=== PATIENT | male | born 1960 | race Two or more races ===

== ENCOUNTER 2021-07-20 14:00 | Emergency (ER) | payer MEDICAID ==
[~2021-07-20] VITALS: Ht 172.7 cm; Wt 109.8 kg
--- NOTE | 2021-07-20 14:08 | NUR ---
BIBRA78 HOME, FOUND UNRESPONSIVE, SLUMPED IN A CHAIR S/P INGESTING WHAT HE THOUGHT WAS COCAINE. NARCAN 2MG IVP GIVEN GAG WRITER. PATIENT A/OX4, VERBALLY RESPONSIVE. PATIENT'S DIAPHORETIC. RESP SLOW, SPO2 88% ON ROOM AIR. HOB ELEVATED AT THIS TIME.
--- NOTE | 2021-07-20 14:10 | NUR ---
PATIENT'S O2 SAT ON ROOM AIR SHOWS 88-89%. PLACED ON 4LPM VIA NC, SPO2 INCREASED TO 97%. PATIENT'S SITTING WITH HOB AT 90 DEGREE, BREATHING EVEN IMPROVED. RESP 14 AT THIS TIME.
[2021-07-20] MEDS ORDERED: NALOXONE PREFILLED SYRINGE 2 MG/2 ML SYRINGE ONE (14:50)
--- NOTE | 2021-07-20 14:53 | NUR ---
GIRLFRIEND KYLAH CALLED REQUESTING AN UPDATE, PT REQUESTED WE DO NOT UPDATE HER ON HIS CONDITION.
--- NOTE | 2021-07-20 14:58 | NUR ---
PATIENT IS REFUSING TO GIVE ANY BLOOD WORK AND URINE AT THIS TIME, DR. RUCKER MADE AWARE.
[2021-07-20] MEDS ORDERED: NALOXONE HCL 0.4 MG/ML AMPUL IV ONE (15:00)
--- NOTE | 2021-07-20 16:08 | NUR ---
PATIENT SITTING UP, ON 2LPM VIA NC WITH SPO2 OF 96%. PATIENT ASLEEP BUT EASILY AROUSABLE. RESPIRATORY STATUS CLOSELY MONITORED.
--- NOTE | 2021-07-20 17:43 | NUR ---
PATIENT IS INSISTING TO GO HOME, BUT WHEN O2 REMOVED, SPO2 DECREASED TO 85% ON ROOM AIR, O2 REAPPLIED AT 2LPM VIA NC WITH SPO2 OF 95%.
[2021-07-20] MEDS ORDERED: NALO4SPR NS (17:49)
--- NOTE | 2021-07-20 18:10 | NUR ---
PATIENT PASSED AMBULATION STATUS, ABLE TO WALK WITH STEADY GAIT. SPO2 ON ROOM AIR IS AT 94%. BREATHING EVEN AND UNLABORED, NO DISTRESS NOTED. DR. RUCKER MADE AWARE. PATIENT IS READY FOR DISCHARGE AND WILL TAKE UBER HOME.
--- NOTE | 2021-07-20 18:34 | NUR ---
Patient ambulatory with steady gait. No distress noted. Patient discharged to home in stable condition. Written and verbal after care instructions given. Patient verbalizes understanding of instruction. IV removed. Catheter intact and site benign. Pressure and 4x4 applied to site. No bleeding noted.
[2021-07-20 18:35] VITALS: BP 102/54
== END 2021-07-20 18:35 | disposition home or self-care (01) ==
LOC: ER 14:03
DX: T40.2X1A Poisoning by other opioids, accidental (unintentional), initial encounter (principal); I44.4 Left anterior fascicular block; E66.01 Morbid (severe) obesity due to excess calories; Z68.36 Body mass index [BMI] 36.0-36.9, adult; Y92.89 Other specified places as the place of occurrence of the external cause
CPT/HCPCS: 71045; 93005; 96374; 99285; J2310

== ENCOUNTER 2022-04-30 19:19 | Inpatient (IN) | payer MEDICAID ==
[~2022-04-30] VITALS: Ht 170.2 cm; Wt 81.6 kg
[~2022-04-30 19:19] MED LIST: NALO4SPR NS
--- NOTE | 2022-04-30 20:30 | NUR ---
BIBSELF C/O R LEG ULCER PAIN X4 DAYS. PT HAS HAD ULCERS FOR PAST 4 YEARS. PATIENT ALERT AND ORIENTED X3. AMBULATORY WITH LEG WRAPPED. PATIENT IN BED 13 AWAITING MD VALLECILLO.
[2022-04-30] MEDS ORDERED: PIPERACILLIN /TAZOBACTAM 3.375 G in IV D5W 50 ML IV ONE (21:00)
[2022-04-30] MEDS ORDERED: VANCOMYCIN 1 GM in IV D5W 250 ML IV ONE (21:00)
[2022-04-30] MEDS ORDERED: IV NS 0.9% 1,000 ML BAG IV ONE ×2 (21:00→23:00)
[2022-04-30] MEDS ORDERED: MORPHINE SULFATE INJ 2 MG/ML DISP.SYRIN IV ONE (21:00)
[2022-04-30] MEDS ORDERED: ONDANSETRON HCL/PF 4 MG/2 ML VIAL IVP ONE (21:00)
[2022-04-30] MEDS ORDERED: KETOROLAC TROMETHAMINE INJ 30 MG/ML VIAL IV ONE (21:00)
--- NOTE | 2022-04-30 21:15 | NUR ---
US TECH AT BEDSIDE
[2022-04-30] MEDS ORDERED: KETOROLAC TROMETHAMINE 15 MG/ML VIAL ONE (21:21)
[2022-04-30] MEDS ORDERED: ONDANSETRON HCL/PF 4 MG/2 ML VIAL ONE (21:21)
[2022-04-30] MEDS ORDERED: PIPERACILLIN /TAZOBACTAM 3.375 G VIAL IV ONE (21:22)
[2022-04-30] MEDS ORDERED: VANCOMYCIN 1 GM VIAL ONE (21:22)
[2022-04-30] MEDS ORDERED: MORPHINE SULFATE INJ 4 MG/ML DISP.SYRIN ONE (21:22)
--- NOTE | 2022-04-30 21:24 | NUR ---
COVID SWAB DONE AND SENT TO LAB
--- NOTE | 2022-04-30 21:25 | NUR ---
BLOOD AND CULTURES COLLECTED AND SENT TO LAB
[2022-04-30 21:48] LABS: BASOPHILS # (AUTO) 0.1 K/uL (0.0-0.2); BASOPHILS % (AUTO) 0.6 % (0.0-2.0); EOSINOPHILS % (AUTO) 1.6 % (0.0-6.0); HEMATOCRIT 40 % (39-51); HEMOGLOBIN 13.4 g/dL (13.5-17.5); LYMPHOCYTES # (AUTO) 2.1 K/uL (0.8-4.8); LYMPHOCYTES % (AUTO) 16.8 % (20.0-44.0); MEAN CORPUSCULAR HGB CONC 33 g/dl (31.0-36.0); MEAN CORPUSCULAR VOLUME 80 fL (80-96); MONOCYTES # (AUTO) 0.9 K/uL (0.1-1.30); MONOCYTES % (AUTO) 6.9 % (2.0-12.0); NEUTROPHILS # (AUTO) 9.3 K/uL (1.8-8.9); NEUTROPHILS % (AUTO) 74.1 % (43.0-81.0); PLATELET COUNT (AUTO) 309 K/uL (150-450); WHITE BLOOD COUNT (AUTO) 12.5 K/uL (4.3-11.0)
[2022-04-30 22:02] LABS: CALCIUM, SERUM 9.1 mg/dL (8.5-10.1); CREATININE 1.1 mg/dL (0.6-1.3); POTASSIUM 4.1 mmol/L (3.5-5.1)
[2022-04-30 22:07] LABS: ALANINE AMINOTRANSFERASE 46 U/L (12-78); ALBUMIN 2.9 g/dL (3.4-5.0); ALKALINE PHOSPHATASE 133 U/L (46-116); ASPARTATE AMINOTRANSFERASE 26 U/L (15-37); BILIRUBIN,DIRECT 0.1 mg/dL (0.0-0.2); BILIRUBIN,TOTAL 0.4 mg/dL (0.2-1.0); TOTAL PROTEIN, SERUM 8.7 g/dL (6.4-8.2)
[2022-04-30] MEDS ORDERED: Z GUARD REMEDY 4 OZ OINT TP PRN (23:30)
[2022-04-30] MEDS ORDERED: ACETAMINOPHEN 325 MG TABLET PO PRN (23:30)
[2022-04-30] MEDS ORDERED: DEXTROSE 50%-WATER 50 ML DISP.SYRIN IV PRN (23:30)
[2022-04-30] MEDS ORDERED: ONDANSETRON HCL/PF 4 MG/2 ML VIAL IVP PRN (23:30)
[2022-04-30] MEDS ORDERED: MAGNESIUM HYDROXIDE 30 ML UDC PO PRN (23:30)
[2022-04-30] MEDS ORDERED: MAG HYDROX/AL HYDROX/SIMETH 30 ML UDC PO PRN (23:30)
[2022-04-30] MEDS ORDERED: ZOLPIDEM TARTRATE 5 MG TABLET PO PRN (23:30)
--- NOTE | 2022-05-01 00:59 | NUR ---
report given to geoffrey schneidergarnisher nurse
--- NOTE | 2022-05-01 01:57 | NUR ---
pt transported to 3rd floor
--- NOTE | 2022-05-01 02:10 | NUR ---
MS RN INITIAL NOTE PT ARRIVED TO UNIT VIA WHEELCHAIR; PT ABLE TO WALK TO BED; NOTED TO HAVE MILD BLE WEAKNESS. PT A&O X4, CALM, COOPERATIVE, MAKES NEEDS KNOWN. PT COMPLAINS OF RLE PAIN AND INCREASED SWELLING, REDNESS AND WARMTH FOR 4 DAYS. PT CURRENTLY ON RA WITH O2SAT 98%; NO S/S OF RESP DISTRESS, NON-LABORED BREATHING, NO SOB, NON-LABORED AND EQUAL BREATHING; APPEARS COMFORTABLE. VSS, NO SIGNIFICANT FINDINGS. LAC SL INTACT AND PATENT WITH NO S/S OF INFILTRATION, FLUSHES EASILY WITH NO RESISTANCE. NS STARTED, RUNNING AT 100 ML/HR. BED IN LOWEST POSITION, CALL LIGHT WITHIN REACH, SIDE RAILS UP X2. WILL INITIATE PLAN OF CARE.
[2022-05-01 04:00] VITALS: BP 126/78
[2022-05-01] MEDS ORDERED: ZOSYN IVPB 3.375 G in IV D5W 50ml IV ONE (04:00)
[2022-05-01 04:05] LABS: BASOPHILS # (AUTO) 0.1 K/uL (0.0-0.2); HEMATOCRIT 36 % (39-51); HEMOGLOBIN 12.2 g/dL (13.5-17.5); LYMPHOCYTES # (AUTO) 1.9 K/uL (0.8-4.8); LYMPHOCYTES % (AUTO) 16.9 % (20.0-44.0); MEAN CORPUSCULAR HGB CONC 34 g/dl (31.0-36.0); MEAN CORPUSCULAR VOLUME 79 fL (80-96); MONOCYTES # (AUTO) 0.9 K/uL (0.1-1.30); MONOCYTES % (AUTO) 7.9 % (2.0-12.0); NEUTROPHILS # (AUTO) 7.9 K/uL (1.8-8.9); NEUTROPHILS % (AUTO) 72.2 % (43.0-81.0); PLATELET COUNT (AUTO) 278 K/uL (150-450); RED BLOOD CELL COUNT(AUTO) 4.51 MIL/uL (4.5-6.0)
[2022-05-01 04:19] LABS: CALCIUM, SERUM 8.6 mg/dL (8.5-10.1); CREATININE 1.1 mg/dL (0.6-1.3); MAGNESIUM 2.2 mg/dL (1.8-2.4); PHOSPHORUS 4.1 mg/dL (2.5-4.9); POTASSIUM 4.7 mmol/L (3.5-5.1)
[2022-05-01] MEDS: IV NS 0.9% 1,000 ML IV SCH ×3 (04:56→17:19)
[2022-05-01] MEDS ORDERED: PIPERACILLIN /TAZOBACTAM 3.375 G VIAL IV ONE (05:23)
--- NOTE | 2022-05-01 06:36 | NUR ---
MS RN CLOSING NOTE PT REMAINS IN BED, CURRENTLY ASLEEP BUT EASILY AROUSABLE. PT A&O X4, CALM, COOPERATIVE, ABLE TO MAKE NEEDS KNOWN. PT REMAINS ON RA WITH NO SIGNIFICANT CHANGES TO O2SAT; NO S/S OF RESP DISTRESS, NON-LABORED BREATHING, NO SOB, NON-LABORED AND EQUAL BREATHING; APPEARS COMFORTABLE. VSS THROUGHOUT THE NIGHT. LAC SL INTACT AND PATENT WITH NO S/S OF INFILTRATION, FLUSHES EASILY WITH NO RESISTANCE; NS AT 100 ML/HR; ALSO STARTED ZOSYN AT 100 ML/HR. BED IN LOWEST POSITION, CALL LIGHT WITHIN REACH, SIDE RAILS UP X2. WILL ENDORSE TO DAYSHIFT NURSE TO CONTINUE CARE.
[2022-05-01 06:39] LABS: BAND % (MANUAL) 2 % (0.0-5.0); LYMPHOCYTES % (MANUAL) 18 % (16-48); MONOCYTES % (MANUAL) 5 % (0-11.0); NEUTROPHILS % (MANUAL) 75 (42-76)
[2022-05-01 06:50] LABS: BAND % (MANUAL) 3 % (0.0-5.0); EOSINOPHILS % (MANUAL) 2 % (0-4); LYMPHOCYTES % (MANUAL) 18 % (16-48); METAMYELOCYTES % 1 % (0-0); MONOCYTES % (MANUAL) 10 % (0-11.0); MYELOCYTES % 1 % (0-0); NEUTROPHILS % (MANUAL) 65 (42-76)
[2022-05-01 08:00] VITALS: BP 127/94
--- NOTE | 2022-05-01 08:07 | NUR ---
RN OPENING NOTE PATIENT RECEIVED IN BED, AO X 4, ABLE TO RESPONDS ALL STIMULI. IN NO ACUTE DISTRESS NOTED. RESPIRATORY EVEN AND UNLABORED ON ROOM AIR. SKIN IS WARM TO TOUCH, KEEP CLEAN/DRY. KEPT ELEVATED HOB FOR ENSURE AIRWAY AND ASPIRATION PRECAUTION, ALSO LOWEST POSITION OF THE BED, S/R UP X 3, BED ALARM IS ON AT ALL THE TIMES. ALL SAFETY PRECAUTION APPLIED. CALL LIGHT WITHIN REACH, WILL CONTINUE TO MONITOR.
[2022-05-01] MEDS: VANCOMYCIN 1 GM in IV D5W 250 ML IV SCH ×2 (08:49→20:58)
[2022-05-01] MEDS: BLOOD SUGAR DIAGNOSTIC 1 EACH STRIP VI SCH ×4 (08:49→21:10)
[2022-05-01] MEDS: INSULIN REGULAR, HUMAN 100 UNIT/ML 3 ML VIAL SQ PRN ×3 (08:51→16:36)
--- NOTE | 2022-05-01 11:04 | NUR ---
WOUND CARE CONSULT: PT PRESENTS WITH RT LOWER LEG REDNESS AND ULCERATIONS, PRESENT ON ADMISSION. DR SCOTT NOTIFIED OF DPM CONSULT REQUEST. IN AGREEMENT WITH PLAN OF CARE.
[2022-05-01] MEDS: ENOXAPARIN SODIUM 40 MG/0.4 ML DISP.SYRIN SQ SCH (11:36)
[2022-05-01] MEDS ORDERED: PIPERACILLIN /TAZOBACTAM 3.375 G in IV D5W 50 ML IV SCH (12:00)
[2022-05-01] MEDS: DAKINS QUARTER STRENGTH (0.125%) 480 ML BOTTLE TOP SCH (14:24)
[2022-05-01 16:00] VITALS: BP 122/78
[2022-05-01] MEDS: CEFTRIAXONE 2 G in IV D5W 100 ML IV SCH (16:33)
[2022-05-01 16:38] LABS: BILIRUBIN,URINE NEGATIVE (NEGATIVE); COLOR,URINE YELLOW (YELLOW); LEUKOCYTE ESTERASE ,URINE NEGATIVE (NEGATIVE); NITRITE, URINE NEGATIVE (NEGATIVE); PH,URINE 5.5 (5.0-8.0); PROTEIN,URINE NEGATIVE (NEGATIVE); UGLUCOSE 500 MG/DL mg/dL (NEGATIVE); UROBILINOGEN,URINE 0.2 EU/dL (0.2)
[2022-05-01 17:00] LABS: BACTERIA,URINE None seen /HPF (None Seen); RBC,URINE 0-2 /HPF (0-2); SQUAMOUS EPITHELIAL CELL,UR 0-2 /HPF (None Seen); WBC,URINE 0-2 /HPF (0-3)
[2022-05-01 17:01] LABS: URIC ACID CRYSTALS,URINE Few /HPF (None Seen); URINE AMORPHOUS URATE Moderate /HPF (None Seen)
[2022-05-01] MEDS: HYDROCODONE/APAP 5/325MG TABLET PO PRN (17:15)
--- NOTE | 2022-05-01 18:11 | NUR ---
RN CLOSING NOTE PATIENT IN BED, RESTING, IN NO ACUTE DISTRESS NOTED. RESPIRATORY EVEN AND UNLABORED ON ROOM AIR. SKIN IS WARM TO TOUCH, KEEP CLEAN/DRY, INTACT IV SITE. NO ADVERSE REACTION OBSERVED FROM ABX. KEPT ELEVATED HOB FOR ENSURE AIRWAY AND ASPIRATION PRECAUTION. ALSO LOWEST POSITION OF THE BED FOR SAFETY. BED ALARM IS ON AT ALL THE TIMES FOR SAFETY. CALL LIGHT WITHIN REACH, WILL ENDORSE TO PATTERN PUNCHER.
--- NOTE | 2022-05-01 19:30 | NUR ---
MS RN OPENING NOTES RECEIVED PT LYING IN BED ASLEEP. EASY TO AROUSE. A/O X4. NOT IN APPARENT DISTRESS. BREATHING EVEN AND NON-LABORED ON ROOM AIR. DENIES PAIN AT THIS TIME. HAS LEFT ANTECUBITAL IV ACCESS #18G WITH NS RUNNING AT 100 ML/HR. NO S/S OF INFILTRATION NOTED. BILATERAL LOWER EXTREMITY DRESSING C/D/I. SAFETY MEASURES IN PLACE. WILL CONTINUE PLAN OF CARE.
[2022-05-01 20:00] VITALS: BP 125/68
[2022-05-01] MEDS: *INSULIN REGULAR(HUMULIN R)HUM 100 UNIT/ML VIAL SQ PRN (21:13)
[2022-05-02] VITALS: BP 125/68
[2022-05-02] MEDS: IV NS 0.9% 1,000 ML IV SCH ×2 (04:52→16:03)
[2022-05-02] MEDS: BLOOD SUGAR DIAGNOSTIC 1 EACH STRIP VI SCH ×4 (06:43→22:10)
--- NOTE | 2022-05-02 07:09 | NUR ---
MS RN CLOSING NOTES PT LYING IN BED ASLEEP. RESPONSIVE TO VERBAL AND TACTILE STIMULI. A/O X3. NO SOB OR NOTED. TOLERATING ROOM AIR WELL. AFEBRILE. NOT IN ACUTE DISTRESS. NO C/O PAIN OR DISCOMFORT. HAS LEFT ANTECUBITAL IV ACCESS #18G WITH NS RUNNING AT 100 ML/HR. INTACT, PATENT AND FLUSHING. URINAL ON BEDSIDE WITH CLEAR YELLOW URINE. BLE OFFLOADED. ALL NEEDS ATTENDED. SAFETY MEASURES IN PLACE: BED LOW AND LOCKED, SIDE RAILS UP X2, CALL LIGHT WITHIN REACH.
[2022-05-02] MEDS: INSULIN REGULAR, HUMAN 100 UNIT/ML 3 ML VIAL SQ PRN ×3 (07:20→16:16)
[2022-05-02 08:00] VITALS: BP 130/59
[2022-05-02] MEDS: DAKINS QUARTER STRENGTH (0.125%) 480 ML BOTTLE TOP SCH ×2 (08:41→16:04)
[2022-05-02] MEDS: HYDROCODONE/APAP 5/325MG TABLET PO PRN (08:42)
[2022-05-02] MEDS: VANCOMYCIN 1 GM in IV D5W 250 ML IV SCH ×2 (08:42→21:41)
[2022-05-02] MEDS: ENOXAPARIN SODIUM 40 MG/0.4 ML DISP.SYRIN SQ SCH (12:20)
[2022-05-02] MEDS: CEFTRIAXONE 2 G in IV D5W 100 ML IV SCH (15:59)
--- NOTE | 2022-05-02 18:25 | NUR ---
RN CLOSING NOTE PATIENT IN BED, SLEEPING, IN NO ACUTE DISTRESS NOTED. RESPIRATORY EVEN AND UNLABORED ON ROOM AIR. SKIN IS WARM TO TOUCH, KEEP CLEAN/DRY, INTACT IV SITE. NO ADVERSE REACTION OBSERVED FROM ABX. KEPT ELEVATED HOB FOR ENSURE AIRWAY AND ASPIRATION PRECAUTION. ALSO LOWEST POSITION OF THE BED FOR SAFETY. BED ALARM IS ON AT ALL THE TIMES FOR SAFETY. CALL LIGHT WITHIN REACH, WILL ENDORSE TO SPORTS BOOK WRITER.
--- NOTE | 2022-05-02 18:30 | NUR ---
RN CLOSING NOTE PATIENT IN BED, RESTING, IN NO ACUTE DISTRESS NOTED. RESPIRATORY EVEN AND UNLABORED ON ROOM AIR. SKIN IS WARM TO TOUCH, KEEP CLEAN/DRY, INTACT IV SITE. PATIENT HAS CHEN CATH AND CONNECTING URINE BAG. KEPT ELEVATED HOB FOR ENSURE AIRWAY AND ASPIRATION PRECAUTION. ALSO LOWEST POSITION OF THE BED FOR SAFETY. BED ALARM IS ON AT ALL THE TIMES FOR SAFETY. CALL LIGHT WITHIN REACH, WILL ENDORSE TO CRISIS CLINICIAN. Addendum: 05/02/22 at 1837 by BIBI RASHEED RN ERROR
--- NOTE | 2022-05-02 19:42 | NUR ---
MS RN OPENING NOTES RECEIVED PT IN BED AA/O X4.ON RM AIR JONNY WELL.NO SIGN SOB/DISTRESS NOTED.BREATHING EVEN AND NON-LABORED DENIES PAIN AT THIS TIME. HAS LEFT ANTECUBITAL IV ACCESS #18G WITH NS RUNNING AT 100 ML/HR. NO S/S OF INFILTRATION NOTED. SAFETY MEASURES IN PLACE. WILL CONTINUE TO MONITOR.
[2022-05-02 20:00] VITALS: BP 160/76
[2022-05-02] MEDS: *INSULIN REGULAR(HUMULIN R)HUM 100 UNIT/ML VIAL SQ PRN (21:51)
[2022-05-02] MEDS ORDERED: INSULIN GLARGINE, 100 UNIT/ML CARTRIDGE SQ SCH (22:00)
[2022-05-02 23:40] VITALS: BP 160/76
[2022-05-03] MEDS: IV NS 0.9% 1,000 ML IV SCH ×3 (00:32→19:54)
[2022-05-03] MEDS: BLOOD SUGAR DIAGNOSTIC 1 EACH STRIP VI SCH ×4 (06:16→22:24)
--- NOTE | 2022-05-03 06:34 | NUR ---
RN CLOSING NOTE PATIENT IN BED, RESTING ON RM AIR JONNY WELL.NO SIGN SOB/DISTRESS NOTED.BREATHING EVEN AND UNLABORED.IV SITE LAC 18G.PATENT AND INTACT.PATIENT HAS CHEN CATH DRAINING CLEARED ,ISAC URINE.KEPT ELEVATED HOB FOR ENSURE AIRWAY AND ASPIRATION PRECAUTION. ALSO LOWEST POSITION OF THE BED FOR SAFETY. BED ALARM IS ON AT ALL THE TIMES FOR SAFETY. CALL LIGHT WITHIN REACH, WILL ENDORSE TO RADIO COMMUNICATIONS SUPERINTENDENT.
[2022-05-03 07:18] LABS: CALCIUM, SERUM 8.4 mg/dL (8.5-10.1); CREATININE 0.8 mg/dL (0.6-1.3); POTASSIUM 3.8 mmol/L (3.5-5.1)
--- NOTE | 2022-05-03 07:30 | NUR ---
RN MS NOTES PT IN BED, ASLEEP, EASY TO AROUSE, NO COMPLAINT AT THIS TIME, RESPIRATIONS NORMAL, CALL LIGHT WITHIN REACH, IV FLUIDS INFUSING WELL, NEEDS ATTENDED, KEPT COMFORTABLE.
[2022-05-03 08:00] VITALS: BP 134/83
[2022-05-03] MEDS: VANCOMYCIN 1 GM in IV D5W 250 ML IV SCH ×2 (08:33→21:25)
[2022-05-03] MEDS: DAKINS QUARTER STRENGTH (0.125%) 480 ML BOTTLE TOP SCH ×2 (08:35→18:17)
[2022-05-03] MEDS: ENOXAPARIN SODIUM 40 MG/0.4 ML DISP.SYRIN SQ SCH (11:36)
[2022-05-03] MEDS: INSULIN REGULAR, HUMAN 100 UNIT/ML 3 ML VIAL SQ PRN ×2 (11:48→18:14)
--- NOTE | 2022-05-03 14:29 | NUR ---
"SS Note: SS received consult for homelessness. Pt. Is a 62-year-old male who demonstrates adequate insight to the reason for hospitalization. Per EMR, pt. presents to the hospital for right leg ulcer pain. Pt. was oriented x3, alert, and cooperative. During interview, pt. was capable of following directions and appeared unkempt. Pt.s speech was at a normal rate and pt.s mood was elevated. Pt. reported no hx of mental health, substance abuse, suicidal ideation, or homicidal ideation. Pt. denies auditory hallucinations, visual hallucinations, paranoia, or delusions. SW explored pt.s living situation. Per pt., he has been homeless for couple years now. Pt. stated that he has a tent by a park [pt. is not sure of the main streets]. Pt. has a daughter [Valentina], but she is not supportive due to his lifestyle. Per EMR, pt. got accepted to [facility] for antibiotics, pt. stated that he agreed to go. Plan: SW provided available resources and pt. accepted. Upon discharge, pt. will be going to [facility]. Pt. signed the homeless waiver and its placed in chart. Resources Provided: Year-round shelters: [facility] [address] [place] [address] ; [facility] [address] [place] [address]; [facility] [address] [facility] [address] Winter Shelters: [facility] Provider: [facility] Address: [address] [facility], [address] # of Beds: 47 Population Served: [facility] 6 | [facility] Vanessa Mcgovern [place] Provider: [facility] Address: [address], [address] # of Beds: 66 Population Served: [facility] [employer] [place] Provider: [facility] Address: [address] [facility], [address] # of Beds: 56 Population Served: [facility] [place] Provider: /[facility] Address: [address] [place] [address], [address] # of Beds: 49 Population Served: [facility] 8 | [facility] Provider: [facility] Address: [address] [place], [place] [address]Juhi Stevens, [address] # of Beds: 37 Population Served: [facility] Hy[facility]: [facility]: [address] [place] ; [facility] [address] [facility] ; [facility] [address], [place] . Food Resources: [place] [facility] at [facility]- [address] [facility]; Meet Each Need with Dign[facility] ([facility]) [address] [facility]; [facility] [address] [facility]; [facility] [address] [facility]. Mental Health resources provided: [facility] [address] [place], [place] [phone] ; [facility] [employer] [place] [address] [facility] [address], [place], [place] [phone] ; [facility] [address] [place], [place] [phone] ; [facility] [place], [place] [phone] Healthcare Clinics: [facility] [address] [facility], [address] [place]. [place] ; [facility] [address] [facility] [address] [place] [address]; [facility] [address] [facility]. [place] [phone] Counseling--Outpatient [facility] [address] [facility], [place] [address] (Specializes in in-depth psychotherapy for emotional distress: anxiety, depression, interpersonal conflicts, life transitions, childhood abuse) [facility] [address] [place] [address] (Assist with solving problem marital difficulties, separation & divorce, aging parents, & grief, chronic & terminal illness) [facility] [address] [place] [address] (Deal with loss & grief, anxiety, marital difficulties) Homebound/Mental Health Services [address] [facility] [address] [place], [place] [id number] (Provide in-home mental services to people who are incapable of leaving their homes) [facility] Senior Service/Resource Center [address] [place] [address] [facility] [address] [place] [address] PSYCHIATRIC OUTPATIENT SERVICES [facility] Partial Hospitalization and Intensive Outpatient Program (Managed Care and Hardy Only)[address] [address] [facility] [phone] [facility] Partial Hospitalization and Outpatient [id number] [facility] [address] [place], [place] [phone] [facility] [id number] [facility] [address] [place], [place] [phone] [facility] Partial Hospitalization and Outpatient [id number] [place], [phone] Substance Abuse resources provided included: [facility] Substance Abuse Self-Helpline (SAS) ; [facility] [address] [facility]. [place] [address] ; [facility] [address] [facility] [address] ; [facility] [address] [facility] [address] ; [place] [address] [facility] [address] ; [facility] [address] [place] [facility] [address] ; [facility] [address] [facility] [address] [facility] [address] ; [facility] Substance Abuse Helpline(SAS)-[facility] ; [facility] ; [facility]; [facility] [place]; [facility] [place]; [facility] [place]; [facility] [place]; [facility] [place]; [facility]; [facility], [facility]. Gisele Mcmahon; Alcoholics Anonymous -SFV; Re-Tylk-Skaodcc ; Marijuana Anonymous -[facility]V; Narcotics Anonymous www.na.org;"
[2022-05-03] MEDS: CEFTRIAXONE 2 G in IV D5W 100 ML IV SCH (17:39)
[2022-05-03] MEDS: HYDROCODONE/APAP 5/325MG TABLET PO PRN (18:12)
--- NOTE | 2022-05-03 18:45 | NUR ---
RN MS NOTES PT IN BED, AWAKE, ALERT AND ORIENTED, NO COMPLAINT OF PAIN OR ANY DISCOMFORT AT THIS TIME, NEW IV LINE INSERTED TO RIGHT FOREARM, OLD SITE AT LEFT A/C STARTED LEAKING, PM MEDS GIVEN ORDERED, WOUND CARE DONE TO BLE, ALL NEEDS ATTENDED.
[2022-05-03 20:12] VITALS: BP 173/95
[2022-05-03 21:00] VITALS: BP 157/88
[2022-05-03] MEDS ORDERED: INSULIN GLARGINE, 100 UNIT/ML CARTRIDGE SQ SCH (22:00)
[2022-05-03] MEDS: *INSULIN REGULAR(HUMULIN R)HUM 100 UNIT/ML VIAL SQ PRN (22:28)
--- NOTE | 2022-05-03 22:50 | NUR ---
MS/TELE/RN AT INITIAL SHIFT ROUND AT 1930, PATIENT WAS IN BED AWAKE, ALERT, ORIENTED, COMFORTABLE, NO C/O PAIN, NO SIGNS OF DISTRESS NOTED, CALL LIGHT IN REACH, FALL PRECAUTIONS PER PROTOCOL, WILL MONITOR.
[2022-05-04 05:05] VITALS: BP 134/82
[2022-05-04] MEDS: IV NS 0.9% 1,000 ML IV SCH ×2 (06:25→17:30)
[2022-05-04] MEDS: BLOOD SUGAR DIAGNOSTIC 1 EACH STRIP VI SCH ×3 (06:25→17:30)
[2022-05-04] MEDS: INSULIN REGULAR, HUMAN 100 UNIT/ML 3 ML VIAL SQ PRN ×2 (06:29→12:24)
--- NOTE | 2022-05-04 06:42 | NUR ---
MS/TELE/RN PATIENT IS AWAKE, NO C/O PAIN, NO SIGNS OF DISTRESS NOTED, CALL LIGHT IN REACH, ALL NEEDS ATTENDED AT THIS TIME, WILL CONTINUE TO MONITOR.
--- NOTE | 2022-05-04 07:00 | NUR ---
MS RN OPENING NOTES PATIENT LAYING IN BED, A/O X 4, TOLERATING WELL ON ROOM AIR WITH NO S/S RESPIRATORY DISTRESS. NO COMPLAINTS OF PAIN OR DISCOMFORT AT THIS TIME. RFA CELAN, INTACT, AND INFUSING NS @ 100 ML/HR. SAFETY MEASURES IN PLACE: BED IN LOWEST LOCKED POSITION, SIDE RAILS UP X 2, CALL LIGHT WITHIN REACH. WILL CONTINUE TO MONITOR.
[2022-05-04 08:00] VITALS: BP 130/90
[2022-05-04] MEDS: DAKINS QUARTER STRENGTH (0.125%) 480 ML BOTTLE TOP SCH ×2 (08:29→17:25)
[2022-05-04] MEDS: VANCOMYCIN 1 GM in IV D5W 250 ML IV SCH (08:29)
[2022-05-04] MEDS: ENOXAPARIN SODIUM 40 MG/0.4 ML DISP.SYRIN SQ SCH (11:43)
[2022-05-04] MEDS: HYDROCODONE/APAP 5/325MG TABLET PO PRN ×3 (12:24→17:50)
[2022-05-04 13:44] LABS: CALCIUM, SERUM 8.4 mg/dL (8.5-10.1); POTASSIUM 3.6 mmol/L (3.5-5.1)
[2022-05-04] MEDS: CEFTRIAXONE 2 G in IV D5W 100 ML IV SCH (15:07)
[2022-05-04 16:00] VITALS: BP 140/70
--- NOTE | 2022-05-04 17:50 | NUR ---
MS RN NOTES PATIENT COMPLAINT OF 7/10 LEFT LEG PAIN AND REQUESTED MEDICATION. NORCO 5/325 MG PO ADMINISTERED ORDERED. WILL CONTINUE TO MONITOR FOR S/S OF PAIN.
--- NOTE | 2022-05-04 18:30 | NUR ---
MS LARIOSROUTE SALES DELIVERY DRIVER NOTES PATIENT STABLE, INFORMED OF MD DISCHARGE ORDER. PATIENT VERBALIZED POSSESSION OF ALL BELONGINGS AND SIGNED BELONGINGS SHEET. PATIENT WAS ALSO INFORMED OF MD DISCHARGE ORDERS, VERBALIZED UNDERSTANDING OF MD DISCHARGE ORDERS, AND SIGNED DISCHARGE ORDERS FORM. IV LINE AND ID BAND REMOVED. REPORT CALLED TO [facility] AND SPOKE WITH RIC GARCIA. REPORT GIVEN TO 2 SUTURE WINDER HAND, PATIENT TRANSFERRED TO THEIR CARE AND LEFT UNIT VIA GURNEY ACCOMPANIED BY THE 2 SUTURE WINDER HAND WITH ALL BELONGINGS. ALL DISCHARGE PAPERWORK PROVIDED TO SUTURE WINDER HAND. Addendum: 05/04/22 at 1901 by CARRIE NORRIS RN ALL ORDERS CARRIED OUT AND ALL NEEDS MET DURING SHIFT.
== END 2022-05-04 18:45 | DRG 720 ==
LOC: ER 19:22 → MED 05-01 00:50
PROVIDERS: ADMIT Nurse Practitioner Acute Care; ATTEND Nurse Practitioner Acute Care
DX: A41.9 Sepsis, unspecified organism (principal); E44.1 Mild protein-calorie malnutrition; E87.1 Hypo-osmolality and hyponatremia; E88.09 Other disorders of plasma-protein metabolism, not elsewhere classified; L97.919 Non-pressure chronic ulcer of unspecified part of right lower leg with unspecified severity; L03.115 Cellulitis of right lower limb; E86.0 Dehydration; L03.116 Cellulitis of left lower limb; L97.929 Non-pressure chronic ulcer of unspecified part of left lower leg with unspecified severity; E66.9 Obesity, unspecified; Z59.00 Homelessness unspecified; Z68.28 Body mass index [BMI] 28.0-28.9, adult; E11.65 Type 2 diabetes mellitus with hyperglycemia; F17.210 Nicotine dependence, cigarettes, uncomplicated; Z98.890 Other specified postprocedural states; I87.313 Chronic venous hypertension (idiopathic) with ulcer of bilateral lower extremity; I87.8 Other specified disorders of veins; Z20.822 Contact with and (suspected) exposure to COVID-19
CPT/HCPCS: 36415; 80048-TC; 80076-TC; 80202-TC; 81001; 82962-TC; 83605-TC; 83735-TC; 84100-TC; 85025-TC; 86803; 87040-TC; 87081-TC; 87806; 93971-TC; A4217; A6253; A6403; C9803; G0378; J0696; J1650; J1815; J1885; J2270; J2405; J2543; J3370; J7030; J7060